=== PATIENT | male | born 1995 | race Caucasian/White ===

== ENCOUNTER 2021-11-23 12:06 | Emergency (ER) | payer BC, SELFPAY ==
[2021-11-23 12:40] VITALS: BP 135/79; PULSE 70; RESP 18; TEMP 36.7; O2SAT 100
--- NOTE | 2021-11-23 13:08 | ED.DENTAL ---
HPI - Dental/Oral General Chief complaint: Dental/Oral Stated complaint: toothache,ear inf Time Seen by Provider: 11/23/21 12:55 Source: patient and RN notes reviewed Mode of arrival: ambulatory Limitations: no limitations History of Present Illness HPI Narrative: Patient presents today complaining of a 2-day history of left lower jaw/tooth pain that is significantly worse today. He also states the pain is radiating to his left ear. He has been taking Tylenol and ibuprofen without relief. Patient states he does have a dentist and will call tomorrow to schedule an appointment. Denies fever, shortness of breath, difficulty swallowing. MD Complaint: tooth pain Related Data Allergies Allergy/AdvReac Type Severity Reaction Status Date / Time amoxicillin [From Augmentin] Allergy Hives Verified 11/23/21 12:48 azithromycin Allergy Hives Verified 11/23/21 12:49 clavulanic acid Allergy Hives Verified 11/23/21 12:48 [From Augmentin] sulfamethoxazole Allergy Hives Verified 11/23/21 12:49 [From Septra] trimethoprim [From Septra] Allergy Hives Verified 11/23/21 12:49 Review of Systems Review of Systems: CONSTITUTIONAL: Denies body aches, fever, chills, or sweats. EYES: Denies visual changes, redness, or discharge. ENT: Denies rhinorrhea, congestion, sore throat,.+Tooth pain, left ear pain CARDIOVASCULAR: Denies chest pain, palpitations, or edema. RESPIRATORY: Denies cough or dyspnea. GASTROINTESTINAL: Denies abdominal pain, nausea, vomiting, or diarrhea. GENITOURINARY: Denies dysuria or hematuria. SKIN: Denies rash, itching, or wounds. MUSCULOSKELETAL: Denies back pain, joint pain, or myalgia. NEUROLOGIC: Denies headache, numbness, tingling, or weakness. PSYCH: Denies depression or anxiety. PMFSH Comments At time of signature, I have reviewed and agree with nursing past medical, surgical, social and family history unless otherwise noted. Please see nursing chart for further information. There is no relevant family history pertinent to the presenting complaint Exam Narrative: GENERAL: Well-appearing, well-nourished, and in no acute distress. HEAD: Normocephalic, atraumatic. EYES: EOMI. No redness or drainage. Conjunctivae normal. ENT: Mucous membranes pink and moist. Tooth #19 is tender to palpation, which has a crown.. No obvious periapical abscess. Left eardrum is dull, Erythematous, and bulging. NECK: Normal AROM. Supple. No lymphadenopathy. CHEST: No respiratory distress. Clear to auscultation. HEART: Regular rate and rhythm. No murmur appreciated. Normal peripheral pulses. EXTREMITIES: Normal range of motion. No edema. SKIN: Warm, dry, no rash. Capillary refill normal. Normal skin turgor. NEURO: No focal deficits. Alert and oriented x3. Gait steady. PSYCH: Normal affect. No signs of depression or anxiety. Course Vital Signs Vital signs: Vital Signs Temperature 98.1 F 11/23/21 12:40 Pulse Rate 70 11/23/21 12:40 Respiratory Rate 18 11/23/21 12:40 Blood Pressure 135/79 11/23/21 12:40 Pulse Oximetry 100 11/23/21 12:40 Temperature 98.1 F 11/23/21 12:40 Pulse Rate 70 11/23/21 12:40 Respiratory Rate 18 11/23/21 12:40 Blood Pressure 135/79 11/23/21 12:40 Pulse Oximetry 100 11/23/21 12:40 Reviewed. Pt has been instructed to follow up with his PCP regarding his elevated blood pressure today. MDM - Dental/Oral Differential Diagnosis Differential diagnosis: Likely gingival abscess, dental caries, toothache, dental abscess, fracture of tooth and other (Otitis media) Critical Care Time Critical Care Time Critical Care Time: No Discharge Plan Discharge Clinical Impression: Toothache, Acute left otitis media Patient Disposition: Home, Self-Care Condition: Stable Instructions: Antibiotic Form, Ear Infection (GEN) Additional Instructions: Please take the clindamycin as prescribed until gone. See a dentist as soon as possible.Take the tramadol as directed. Con
[2021-11-23] MEDS: IBUPROFEN 400 MG TABLET 800 MG PO (13:11)
== END 2021-11-23 13:20 | disposition home or self-care (01) ==
PROVIDERS: Emergency Provider Nurse Practitioner
DX: K08.89 Other specified disorders of teeth and supporting structures (principal); H66.92 Otitis media, unspecified, left ear; Z86.16 Personal history of COVID-19
CPT/HCPCS: 99213; A9270; G0463